=== PATIENT | female | born 1970 | race Caucasian/White ===

== ENCOUNTER 2017-12-19 09:53 | Emergency (ER) | END 2017-12-19 13:25 | disposition home or self-care (01) ==

== ENCOUNTER 2018-11-07 06:21 | Emergency (ER) | payer OTHER ==
[~2018-11-07] VITALS: Ht 160 cm; Wt 69.6 kg
[~2018-11-07 06:21] MED LIST: CYCL10TA7 PO
[2018-11-07 06:24] VITALS: Ht 160 cm; Wt 69.6 kg
[2018-11-07] MEDS ORDERED: morphine 4 MG/ML VIAL IV STA (08:02)
[2018-11-07] MEDS ORDERED: SOD CHLORIDE 0.9% 1,000 ML IV STA (08:02)
[2018-11-07] MEDS ORDERED: ONDANSETRON 4 MG INJ IV STA (08:02)
[2018-11-07] MEDS ORDERED: KETOROLAC 30 MG INJ IV STA (08:12)
--- NOTE | 2018-11-07 08:22 | ERD ---
ER Documentation Chief Complaint Chief Complaint left flank pain on and off x 2 weeks HPI This is a 47-year-old female with no past medical history presents to the emergency department complaining of left flank pain that is been intermittent for the past 2 weeks. The patient states that the pain was a sudden onset. Was 10 out of 10 in intensity. She states she had no fevers no shaking no chills. The patient states that over the past 2 days the pain has progressively worsened. The pain began to radiate to the left lower quadrant. She indicates that she is perimenopausal and has had a menstrual cycle twice in the past fri. She indicates she is currently experiencing hematuria but also indicates that she is on her menstrual cycle this time. She did not take any analgesic medication prior to arrival. She denies any chest pain or pressure that radiates to the neck arm back or jaw. ROS All systems reviewed and are negative except as per history of present illness. Medications Home Meds Active Scripts Ibuprofen* (Motrin*) 800 Mg Tab, 800 MG PO Q6H PRN for PAIN AND OR ELEVATED TEMP, #30 TAB Prov:GITA MAURER MD 11/07/18 Docusate Sodium* (Colace*) 100 Mg Capsule, 100 MG PO TID, #30 CAP Prov:GITA MAURER MD 11/07/18 Hydrocodone/Acetaminophen ([place] 5-325 Tablet) 1 Each Tablet, 1 TAB PO Q6H PRN for PAIN, #20 TAB Prov:GITA MAURER MD 11/07/18 Discontinued Scripts Cyclobenzaprine Hcl* (Cyclobenzaprine Hcl*) 10 Mg Tablet, 10 MG PO TID, #15 TAB Prov:KRYS GARCIA NP 12/19/17 Allergies Allergies: Coded Allergies: No Known Allergy (Unverified , 11/07/18) PMhx/Soc Medical and Surgical Hx: pt denies Medical Hx History of Surgery: Yes () Anesthesia Reaction: No Hx Neurological Disorder: No Hx Respiratory Disorders: No Hx Cardiac Disorders: No Hx Psychiatric Problems: No Hx Miscellaneous Medical Probl: No Hx Alcohol Use: No Hx Substance Use: No Hx Tobacco Use: No Smoking Status: Never smoker Physical Exam Vitals Vital Signs Date Temp Pulse Resp B/P (MAP) Pulse Ox O2 O2 Flow FiO2 Time Delivery Rate 11/07/18 98.3 110 16 145/81 99 Room Air 11:23 (102) 11/07/18 98.6 78 16 132/78 98 Room Air 11:00 (96) 11/07/18 97.9 88 18 147/87 98 06:24 (107) Physical Exam Constitutional:Well-developed. Well-nourished. Neck: No nuchal rigidity. No lymphadenopathy. No posterior cervical spine tenderness or step-offs. Respiratory: Not using accessory muscles of respiration.Lungs were clear to auscultation bilaterally. No rhonchi. No rales. No wheezing. Cardiovascular: Regular rate regular rhythm.No murmurs. No rubs were appreciated.S1, S2 normal. Distal pulses are palpable 2+ bilaterally. GI: Abdomen was soft. Left lower quadrant tenderness. Left CVA tenderness. Non Distended. No pulsatile abdominal masses or bruits. No rebound. No guarding. Bowel sounds were present and normal. Muscle skeletal: Full range of motion of both the upper and lower extremities bilaterally.Normal muscle tone.No assymetrical calf tenderness or swelling. Skin: No petechia, no purpura. No lesions on the palms or the soles of the feet. No maculopapular rash. NEURO: Patient was alert, awake, orientated x3.No facial droop. Gait observed and normal with no ataxia.Speech had regular rate and rhythm. No focal neurological deficits. Result Diagram: 11/07/18 0808 11/07/18 0808 Results 24 hrs Laboratory Tests Test 11/07/18 08:08 11/07/18 08:29 11/07/18 08:42 White Blood Count 8.0 10^3/ul Red Blood Count 4.59 10^6/ul Hemoglobin 12.4 g/dl Hematocrit 39.0 % Mean Corpuscular Volume 85.0 fl Mean Corpuscular Hemoglobin 27.0 pg Mean Corpuscular 31.8 g/dl Hemoglobin Concent Red Cell Distribution Width % Platelet Count 226 10^3/UL Mean Platelet Volume 10.2 fl Immature Granulocytes % 0.400 % Neutrophils % % Segmented Neutrophils % (Manual) 72 % Lymphocytes % % Lymphocytes % (Manual) 21 % Monocytes % % Monocytes % (Manual) 5 % Eosinophils % % Eosinophils % (Manual) 1 % Basophils % % Basophils % (Manual) 1 % Nucleated Red Blood Cells % 0.0 /100WBC Immature Granulocytes # 0.030 10^3/ul Neutrophils # 10^3/ul Lymphocytes (Manual) 1.6 10^3/ul Lymphocytes # 10^3/ul Monocytes # 10^3/ul Monocytes # (Manual) 0.4 10^3/ul Eosinophils # 10^3/ul Basophils # 10^3/ul Basophils # (Manual) 0.0 10^3/ul Nucleated Red Blood Cells # 10^3/ul Platelet Estimate NORMAL Polychromasia 1+ Poikilocytosis 2+ Anisocytosis 1+ Ovalocytes 1+ Prothrombin Time 11.9 Sec Prothrombin Time Ratio 0.9 INR International 0.87 Normalized Ratio Activated Partial Thromboplast 24.9 Sec Time Sodium Level 142 mmol/L Potassium Level 3.7 mmol/L Chloride Level 108 mmol/L Carbon Dioxide Level 24 mmol/L Anion Gap 10 Blood Urea Nitrogen 9 mg/dl Creatinine 0.51 mg/dl Est Glomerular Filtrat > 60 mL/min Rate mL/min Glucose Level 102 mg/dl Calcium Level 9.3 mg/dl Total Bilirubin 0.4 mg/dl Direct Bilirubin 0.00 mg/dl Indirect Bilirubin 0.4 mg/dl Aspartate Amino 29 IU/L Transf (AST/SGOT) Alanine 19 IU/L Aminotransferase (ALT/SGPT) Alkaline Phosphatase 78 IU/L Troponin I < 0.012 ng/ml Total Protein 8.4 g/dl Albumin 4.6 g/dl Globulin 3.80 g/dl Albumin/Globulin Ratio 1.21 Amylase Level 128 U/L Lipase 459 U/L Urine Color STRAW Urine Clarity CLEAR Urine pH 5.0 Urine Specific [place] 1.003 Urine Ketones NEGATIVE mg/dL Urine Nitrite NEGATIVE mg/dL Urine Bilirubin NEGATIVE mg/dL Urine Urobilinogen NEGATIVE mg/dL Urine Leukocyte Esterase NEGATIVE Shaji/ul Urine Microscopic RBC 80 /HPF Urine Microscopic WBC 1 /HPF Urine Hemoglobin 3+ mg/dL Urine Glucose NEGATIVE mg/dL Urine Total Protein NEGATIVE mg/dl POC Beta HCG, Qualitative NEGATIVE Current Medications Medications Dose Sig/Zonia Start Time Status Last (Trade) Ordered Route PRN Stop Time Admin Dose Reason Admin Sodium 1,000 ml @ Q1H STAT 11/07/18 DC 11/07/18 Chloride 1,000 mls/hr IV 08:02 08:37 11/07/18 09:01 Morphine 4 mg ONCE STAT 11/07/18 DC 11/07/18 Sulfate IV 08:02 08:38 (morphine) 11/07/18 08:04 Ondansetron 4 mg ONCE STAT 11/07/18 DC 11/07/18 HCl (Zofran IV 08:02 08:38 Inj) 11/07/18 08:04 Ketorolac 30 mg ONCE STAT 11/07/18 DC 11/07/18 Tromethamine IV 08:12 08:37 (Toradol) 11/07/18 08:13 Procedures/MDM This patient presented to the emergency department with abdominal pain and was seen and evaluated by myself. My differential diagnosis included but was not limited to abdominal aortic aneurysm, appendicitis, pancreatitis, perforated peptic ulcer, perforated viscus, Boerhaaves syndrome or visceral pain such as diverticulitis, DKA, esophagitis, hepatitis or bowel obstruction. The patient was placed on a cardiac tech, continuous pulse oximetry, and IV access was established by nursing staff. The patient was given intravenous morphine Toradol and Zofran for analgesic control. I obtained a 12-lead EKG tracing to rule for atypical myocardial infarction. 12 Lead EKG tracing ordered and reviewed by myself showed: Normal sinus rhythm of 82 bpm and no arrhythmia. [place] interval normal. QRS duration normal. No ST segment elevation No ST segment depression. No changes consistent with acute ischemia. CT scan of the abdomen was ordered reviewed by myself as well as the radiologist and indicated the followin. Subtle 12 mm low attenuation lesion within the tail of the pancreas. Imaging features are nonspecific on this unenhanced scan, possibly a postinflammatory pseudocyst or cystic pancreatic neoplasm (IPMN). No associated inflammatory changes. In the absence of previous imaging for comparison, follow-up MRI is recommended for definitive characterization. 2. No additional acute process in the imaged abdomen or pelvis. 3. Mild diverticulosis of the large bowel. No associated inflammatory changes. 4. No renal calcifications or evidence of obstructive uropathy. The patient had mild elevation of her pancreatic enzymes. The findings were told to the patient as well as her . I indicated the importance of following up immediately to undergo an MRI and biopsy. 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 She also was able to make an appointment with her primary care physician while in the emergency department for the next 24 hours. She was sent home with analgesic medication. I indicated the finding of the pancreatic mass was an incidental finding and that her symptoms more likely were result in the left flank region of diverticulosis without diverticulitis. There is no evidence of urinary tract infection or obstructive uropathy The patient was discharged home in fair condition. They were instructed to return to the emergency department at any time if there was any worsening of their condition. The patient stated they would follow up with their PCP in the next 24-48 hours to initiate a suitable medication regimen under the care of their PCP as well as to allow their PCP to monitor any drug reactions. The patient was discharged home with prescriptions after they gave informed consent to the new medication. They were also fully informed by myself on the adverse effects and adverse drug interactions in order to provide adequate safeguards to prevent possible adverse reactions to medications. Critical Care: Time: 45 minutes Treatments/Evaluations: Close monitoring and treatment of unstable vital signs, cardiorespiratory, and neurologic status, while maintaining tight balance of fluid, respiratory, and cardiac interventions. Time does not include performing any of the above billable procedures. Departure Diagnosis: Primary Impression: Flank pain Additional Impression: Pancreatic mass Condition: GITA Sihne MD Nov 07, 2018 08:22
[2018-11-07] MEDS ORDERED: IBUP800T48 PO (12:42)
[2018-11-07] MEDS ORDERED: DOCU-144 PO (12:42)
[2018-11-07] MEDS ORDERED: HYDR-4011 PO (12:42)
[2018-11-07 12:54] VITALS: BP 118/100; PULSE 96; RESP 18
== END 2018-11-07 12:59 | disposition home or self-care (01) ==
LOC: E/R 06:21
DX: K86.9 Disease of pancreas, unspecified (principal)
CPT/HCPCS: 74176; 80053; 81001; 81025; 82150; 83690; 84484; 85025; 85610; 85730; 87086; 93005; 96374; 96375; 99285; J1885; J2270; J2405; J7030

== ENCOUNTER 2018-12-11 19:02 | Emergency (ER) | payer OTHER ==
[~2018-12-11] VITALS: Ht 165.1 cm; Wt 67.7 kg
[~2018-12-11 19:02] MED LIST changes: +ACET325T33 PO; -CYCL10TA7 PO; +DOCU-144 PO; +HYDR-4011 PO; +IBUP800T48 PO; +RANI150T35 PO
[2018-12-11 19:14] VITALS: BP 159/74; PULSE 85; RESP 18; Ht 165.1 cm; Wt 67.7 kg
[2018-12-11] MEDS ORDERED: morphine 2 MG INJ IV STA (19:19)
[2018-12-11] MEDS ORDERED: SOD CHLORIDE 0.9% 1,000 ML IV STA (19:19)
[2018-12-11] MEDS ORDERED: FAMOTIDINE 20 MG INJ IV STA (19:19)
[2018-12-11] MEDS ORDERED: ONDANSETRON 4 MG INJ IV STA (19:19)
--- NOTE | 2018-12-11 19:20 | ERD ---
ER Documentation Chief Complaint Chief Complaint LUQ ab pain today; hx pancreatic cyst&gallstones HPI 47-year-old female, with history of pancreatic cyst presents the emergency department, complaining of epigastric pain. The pain is described as sharp, constant, 6/10. The patient denies nausea or vomiting, no fever or chills. No diarrhea or constipation, no urinary symptoms. ROS All systems reviewed and are negative except as per history of present illness. Medications Home Meds Active Scripts Ranitidine Hcl* (Zantac*) 150 Mg Tablet, 150 MG PO BID PRN for EPIGASTRIC PAIN, #30 TAB Prov:MIGUE NUNEZ MD 12/11/18 Acetaminophen* (Tylenol*) 325 Mg Tablet, 2 TAB PO Q6 PRN for PAIN AND OR ELEVATED TEMP, #20 TAB Prov:MIGUE NUNEZ MD 12/11/18 Ibuprofen* (Motrin*) 800 Mg Tab, 800 MG PO Q6H PRN for PAIN AND OR ELEVATED TEMP, #30 TAB Prov:GITA MAURER MD 11/07/18 Docusate Sodium* (Colace*) 100 Mg Capsule, 100 MG PO TID, #30 CAP Prov:GITA MAURER MD 11/07/18 Hydrocodone/Acetaminophen ([place] 5-325 Tablet) 1 Each Tablet, 1 TAB PO Q6H PRN for PAIN, #20 TAB Prov:GITA MAURER MD 11/07/18 Allergies Allergies: Coded Allergies: No Known Allergy (Unverified , 11/07/18) PMhx/Soc History of Surgery: Yes () Anesthesia Reaction: No Hx Neurological Disorder: No Hx Respiratory Disorders: No Hx Cardiac Disorders: No Hx Psychiatric Problems: No Hx Miscellaneous Medical Probl: No Hx Alcohol Use: No Hx Substance Use: No Hx Tobacco Use: No FmHx Family History: No diabetes, No coronary disease Physical Exam Vitals Vital Signs Date Temp Pulse Resp B/P (MAP) Pulse Ox O2 O2 Flow FiO2 Time Delivery Rate 12/11/18 99.1 85 18 159/74 99 19:14 (102) Physical Exam Const: No acute distress Head: Atraumatic Eyes: Normal Conjunctiva ENT: Normal External Ears, Nose and Mouth. Neck: Full range of motion. No meningismus. Resp: Clear to auscultation bilaterally Cardio: Regular rate and rhythm, no murmurs Abd: Soft, minimal tenderness to deep palpation in the epigastric area, Terry negative, no peritoneal signs. Normal bowel sounds Skin: No petechiae or rashes Back: No midline or flank tenderness Ext: No cyanosis, or edema Neur: Awake and alert Psych: Normal Mood and Affect Result Diagram: 12/11/18194212/11/181942 Results 24 hrs Laboratory Tests Test 12/11/18 19:43 White Blood Count 9.3 10^3/ul Red Blood Count 4.31 10^6/ul Hemoglobin 12.9 g/dl Hematocrit 38.9 % Mean Corpuscular Volume 90.3 fl Mean Corpuscular Hemoglobin 29.9 pg Mean Corpuscular Hemoglobin Concent 33.2 g/dl Red Cell Distribution Width 18.9 % Platelet Count 207 10^3/UL Mean Platelet Volume 10.7 fl Immature Granulocytes % 0.200 % Neutrophils % 74.9 % Lymphocytes % 17.0 % Monocytes % 7.0 % Eosinophils % 0.4 % Basophils % 0.5 % Nucleated Red Blood Cells % 0.0 /100WBC Immature Granulocytes # 0.020 10^3/ul Neutrophils # 7.0 10^3/ul Lymphocytes # 1.6 10^3/ul Monocytes # 0.7 10^3/ul Eosinophils # 0.0 10^3/ul Basophils # 0.1 10^3/ul Nucleated Red Blood Cells # 0.0 10^3/ul Urine Color STRAW Urine Clarity CLEAR Urine pH 7.0 Urine Specific [place] 1.009 Urine Ketones TRACE mg/dL Urine Nitrite NEGATIVE mg/dL Urine Bilirubin NEGATIVE mg/dL Urine Urobilinogen NEGATIVE mg/dL Urine Leukocyte Esterase NEGATIVE Shaji/ul Urine Hemoglobin NEGATIVE mg/dL Urine Glucose NEGATIVE mg/dL Urine Total Protein NEGATIVE mg/dl Sodium Level 135 mmol/L Potassium Level 3.5 mmol/L Chloride Level 103 mmol/L Carbon Dioxide Level 22 mmol/L Anion Gap 10 Blood Urea Nitrogen 7 mg/dl Creatinine 0.54 mg/dl Est Glomerular Filtrat Rate mL/min > 60 mL/min Glucose Level 111 mg/dl Calcium Level 9.2 mg/dl Total Bilirubin 0.5 mg/dl Direct Bilirubin 0.00 mg/dl Indirect Bilirubin 0.5 mg/dl Aspartate Amino Transf (AST/SGOT) 28 IU/L Alanine Aminotransferase (ALT/SGPT) 23 IU/L Alkaline Phosphatase 75 IU/L Troponin I < 0.012 ng/ml Total Protein 8.1 g/dl Albumin 4.5 g/dl Globulin 3.60 g/dl Albumin/Globulin Ratio 1.25 Lipase 367 U/L Current Medications Medications Dose Sig/Zonia Start Time Status Last (Trade) Ordered Route PRN Stop Time Admin Dose Reason Admin Sodium 1,000 ml @ Q1H STAT 12/11/18 DC 12/11/18 Chloride 1,000 mls/hr IV 19: 19:54 12/11/18 20:18 Morphine 2 mg ONCE STAT 12/11/18 DC 12/11/18 Sulfate IV 19: 19:59 (morphine) 12/11/18 19:25 Ondansetron 4 mg ONCE STAT 12/11/18 DC 12/11/18 HCl (Zofran IV 19:19 19:59 Inj) 12/11/18 19:25 Famotidine 20 mg ONCE STAT 12/11/18 DC 12/11/18 (Pepcid Iv) IV 19: 19:59 12/11/18 19:25 DIAGNOSTIC IMAGING REPORT Patient: RICK SERRANO : 1970 Age: 47 Sex: F MR #: [id number] DOS: 12/11/181918 Ordering MD: MIGUE NUNEZ MD Location: [facility] Room/Bed: PROCEDURE: US Abdomen. CLINICAL INDICATION: abdominal pain TECHNIQUE: Multiple real-time images were acquired of the patient's right upper quadrant abdomen and retroperitoneum utilizing a high resolution transducer. COMPARISON: None FINDINGS: The liver demonstrates normal echogenicity. The liver is normal in size and no focal solid lesions are seen. The liver measures 14.3 cm in length. The portal vein is patent with normal direction of flow. No intrahepatic biliary dilatation is seen. No gallstones are identified within the gallbladder. There is no pericholecystic fluid or gallbladder wall thickening. The common bile duct measures 2 mm in maximal dimension. The visualized portions of the pancreas are unremarkable. The tail of the pancreas is not seen. No free fluid is identified. The right kidney is normal in size, and demonstrate normal echogenicity and cortical thickness. The right kidney measures 9.6 cm in long dimension. There is no evidence of hydronephrosis. There are no kidney stones. RPTAT: AA IMPRESSION: Unremarkable right upper quadrant abdominal ultrasound. Procedures/MDM vital signs stable. Differential diagnosis include but not limited to: Gastritis, gastroenteritis, cholelithiasis, cholecystitis, kidney stones, irritable bowel syndrome, inflammatory bowel syndrome, malabsorption syndrome, food intolerance, medication side effect, pancreatitis, diverticulitis, bowel obstruction. Physical examination and clinical presentation consistent most likely with acute gastritis low suspicion for acute abdomen is. During the ED course the patient remained stable, no new complaints. The patient received treatment with IV fluids and IV medications presenting overall improvement of the symptoms. Results and clinical impression discussed with the patient who agrees with management. The patient is stable to be treated outpatient and will be discharged home with a Rx for acetaminophen and ranitidine, some side effects of prescribed medications (headache, rash, nausea, vomiting, diarrhea, drowsiness, habituation, bleeding, hypertension, interactions with other medications) were reviewed. Follow up with the primary care provider in the next 48h is recommended. If symptoms persist, worsen or new symptoms develop, then patient should return to the ED immediately. Instructions explained and given directly by me to the patient with acknowledgment and demonstrated understanding. Disclaimer: Inadvertent spelling and grammatical errors are likely due to EHR/dictation software use and do not reflect on the overall quality of patient care. Also, please note that the electronic time recorded on this note does not necessarily reflect the actual time of the patient encounter. Departure Diagnosis: Primary Impression: Abdominal pain Additional Impression: Gastritis Condition: Stable Additional Instructions: Muchas stephen por [facility] para culp servicio. Esperamos que en culp visita a la mariano de emergencia culp problema medico haya sido solucionado y que se sienta mucho mejor. Para estar seguros que culp mejoria sigue en proceso, le pedimos el favor de hacer janes tamica de seguimiento medico con culp doctor primario en los proximos 2-4 cochran. Lleve con usted estos documentos y las medicinas recetadas. Si joyce sintomas empeoran, NO SE ESPERE, por favor regrese a mariano de emergencia INMEDIATAMENTE. ALBERTS-MIGUE CASTILLO MD Dec 11, 2018 19:20
== END 2018-12-11 21:39 | disposition home or self-care (01) ==
LOC: E/R 19:02 → FTE 21:39
DX: K29.70 Gastritis, unspecified, without bleeding (principal)
CPT/HCPCS: 36415; 76705; 80053; 81003; 83690; 84484; 85025; 96374; 96375; 99285; J2270; J2405; J7030